=== PATIENT | female | born 1980 | race Caucasian/White ===

== ENCOUNTER 2016-12-31 10:27 | Day surgery (SDC) | payer MEDICAID ==
[~2016-12-31] VITALS: Ht 160 cm; Wt 77.0 kg
[~2016-12-31 10:27] MED LIST: ATROPINE 1 MG/10 ML SYRINGE IV PRN; DIPHENHYDRAMINE 50 MG INJ IV PRN; EPHEDrine SULFATE 50 MG/5 ML SYG IV PRN; FENTAnyl 50 MCG/ML VIAL IV PRN; HYDROmorphONE (0.2 MG/ML) 10ML SYG IV PRN; LABETALOL HCL 20MG INJ IV PRN; MEPERIDINE 25 MG INJ IV PRN; MIDAZOLAM 1 MG/ML 2 ML INJ IV PRN; ONDANSETRON 4 MG INJ IV PRN; OXYCODONE/ACETAMINOPHEN (5/325) TAB PO PRN; PREN1TAB79 PO; hydrALAzine 20 MG INJ IV PRN; morphine (1 MG/ML) 10ML SYRINGE IV PRN
[2016-12-31 11:57] VITALS: Ht 160 cm; Wt 77.0 kg
[2016-12-31 11:58] VITALS: BP 114/81; PULSE 58; RESP 20
[2016-12-31] MEDS ORDERED: BUPIVACAINE 0.5%/EPI (SDV) 30 ML INJ ONE (13:21)
[2016-12-31] MEDS ORDERED: LIDOCAINE 2% (SDV) 5 ML INJ ONE (13:52)
[2016-12-31] MEDS ORDERED: NEOSTIGMINE 3 MG/3 ML SYRINGE ONE (13:52)
[2016-12-31] MEDS ORDERED: PROPOFOL 20 ML ONE (13:52)
[2016-12-31] MEDS ORDERED: SUCCINYLCHOLINE CHLORIDE 100 MG/5 ML SYG IV ONE (13:52)
[2016-12-31] MEDS ORDERED: ROCURONIUM 50 MG INJ ONE (13:52)
[2016-12-31] MEDS ORDERED: MEPERIDINE 100 MG INJ ONE (13:52)
[2016-12-31] MEDS ORDERED: GLYCOPYRROLATE 0.4 MG INJ ONE (13:52)
--- NOTE | 2016-12-31 14:13 | PDOCDIS ---
Discharge Instructions CONDITION Patient Condition: Good HOME CARE INSTRUCTIONS: Diet Instructions: Regular ACTIVITY: Activity Restrictions: No Restrictions Bathing Restrictions: Shower FOLLOW UP/APPOINTMENTS Follow-up Plan pt changed her mind prior to surgery,btl will be done in future date NELL UNDERWOOD MD Dec 31, 2016 14:13
--- NOTE | 2016-12-31 14:19 | DS ---
Date/Time of Note Date/Time of Note DATE: 12/31/16 TIME: 14:14 Discharge Summary Admission/Discharge Info Admit Date/Time admitted for tual ligation ,changed her mind will do it in a future time. Discharge Date/Time DEC 31 2016 AT 1415 Discharge Diagnosis NO TUBAL LIGATION .PERFORMED ,PT CHANGED HER MIND. Patient Condition: Good Procedures NONE Hx of Present Illness REQUEST FOR BTL ,CHANGED HER MIND Hospital Course SATISFACTORY Home Meds Reported Medications Vit W-Ca,Fe,FA(<1 mg) ( Vitamins) 1 Each Tablet, 1 EACH PO, TAB 11/19/15 Follow-up Plan pt changed her mind prior to surgery,btl will be done in future date Primary Care Provider Care Physician No Primary NELL UNDERWOOD MD Dec 31, 2016 14:19
== END 2016-12-31 14:40 | disposition home or self-care (01) ==
LOC: SDS 10:27
PROVIDERS: ATTEND Obstetrics & Gynecology
DX: Z30.2 Encounter for sterilization (principal); Z53.29 Procedure and treatment not carried out because of patient's decision for other reasons
CPT/HCPCS: J2175; J2710; Z7610